=== PATIENT | female | born 1950 | race Caucasian/White ===

== ENCOUNTER 2019-04-15 10:19 | Inpatient (IN) | payer MEDICARE, MEDICAID ==
[~2019-04-15] VITALS: Ht 154.9 cm; Wt 73.9 kg
[2019-04-15 15:18] LABS: BASOPHILS % 0.3 % (0.0-2.0); EOSINOPHILS % 1.2 % (0.0-5.0); HEMATOCRIT. 34.1 % (36.0-48.0); HEMOGLOBIN. 11.4 g/dL (12.0-16.0); LYMPHOCYTES % 14.8 % (20.0-50.0); MEAN CORPUSCULAR HEMOGLOBIN 29.5 pg (28.0-32.0); MEAN CORPUSCULAR VOLUME 88.3 fL (81.0-99.0); MEAN PLATELET VOLUME 8.4 fl (7.4-10.4); MONOCYTES % 3.7 % (2.0-8.0); PLATELET 317 x1000/uL (130-400); RED BLOOD CELL COUNT 3.86 mill/uL (4.2-5.4); RED CELL DISTRIBUTION WIDTH 13.9 % (11.6-14.6)
[2019-04-15 15:19] LABS: CHLORIDE 108 mEq/L (98-107)
[2019-04-15] MEDS ORDERED: FUROSEMIDE 40MG/4ML VIAL IVP NR (18:15)
[2019-04-15] MEDS ORDERED: MAGNESIUM/ALUMINUM HYDROXIDE/SIMETHICONE 30ML UDC PO PRN (18:30)
[2019-04-15] MEDS ORDERED: MORPHINE SULFATE 2 MG/ML CPJ (NOT FOR IM USE) IV PRN (18:30)
[2019-04-15] MEDS ORDERED: TRAMADOL 50MG TABLET PO PRN (18:30)
[2019-04-15] MEDS ORDERED: GUAIFENESIN 200MG/10ML SUGAR FREE UDC PO PRN (18:30)
[2019-04-15] MEDS ORDERED: ONDANSETRON HCL 4MG/2ML INJ IV PRN (18:30)
[2019-04-15] MEDS ORDERED: IPRATROPIUM/ALBUTEROL 0.5-3(2.5)MG/3ML NEB NEB PRN (18:30)
[2019-04-15] MEDS ORDERED: DOCUSATE SODIUM 100MG CAPSULE PO PRN (18:30)
[2019-04-15] MEDS ORDERED: ACETAMINOPHEN 325MG TABLET PO PRN (18:30)
[2019-04-15] MEDS ORDERED: ZOLPIDEM TARTRATE 5MG TABLET PO PRN (18:30)
[2019-04-15] MEDS ORDERED: CLONIDINE 0.1MG TABLET PO PRN (18:30)
[2019-04-15] MEDS ORDERED: NITROGLYCERIN 0.4MG TABLET SL SL PRN (18:30)
[2019-04-15 18:44] LABS: T4 FREE 1.04 ng/dL (0.76-1.46)
[2019-04-15 18:57] LABS: FOLIC ACID (FOLATE) SERUM >20 ng/mL ng/mL (>5.38)
[2019-04-15 19:08] LABS: VITAMIN B12 SERUM 336 pg/mL (211-911)
[2019-04-15 21:17] VITALS: BP 97/56
[2019-04-15] MEDS: ENOXAPARIN 40MG/0.4ML SYR SUBCUT SCH ×2 (22:14→22:30)
[2019-04-16] VITALS: BP 107/48
[2019-04-16 00:03] LABS: CREATINE KINASE MB FRACTION 1.8 ng/mL (0.5-3.6)
[2019-04-16] MEDS ORDERED: ENAL10TA PO (00:15)
[2019-04-16] MEDS ORDERED: OMEP20CA5 PO (00:15)
[2019-04-16] MEDS ORDERED: VENL-180 PO (00:15)
[2019-04-16] MEDS ORDERED: CARV6.2548 PO (00:16)
[2019-04-16] MEDS ORDERED: FURO40TA5 PO (00:16)
[2019-04-16 08:00] VITALS: BP 116/58
[2019-04-16] MEDS: ASPIRIN 325MG EC TABLET PO SCH (09:00)
[2019-04-16] MEDS ORDERED: FUROSEMIDE 40MG/4ML VIAL IVP SCH (09:00)
[2019-04-16 09:20] LABS: CHLORIDE 108 mEq/L (98-107)
[2019-04-16 09:33] LABS: CREATINE KINASE 69 IU/L (26-192); PHOSPHORUS 3.7 mg/dL (2.5-4.9)
[2019-04-16 09:39] LABS: CREATINE KINASE MB FRACTION 1.9 ng/mL (0.5-3.6)
[2019-04-16 09:55] LABS: BASOPHILS % 0.4 % (0.0-2.0); EOSINOPHILS % 2.8 % (0.0-5.0); HEMATOCRIT. 34.3 % (36.0-48.0); HEMOGLOBIN. 11.2 g/dL (12.0-16.0); MEAN CORPUSCULAR HEMOGLOBIN 29.3 pg (28.0-32.0); MEAN CORPUSCULAR VOLUME 89.7 fL (81.0-99.0); MEAN PLATELET VOLUME 8.8 fl (7.4-10.4); MONOCYTES % 5.2 % (2.0-8.0); NEUTROPHILS % 63.6 % (40.0-76.0); PLATELET 350 x1000/uL (130-400); RED BLOOD CELL COUNT 3.82 mill/uL (4.2-5.4); RED CELL DISTRIBUTION WIDTH 14.3 % (11.6-14.6)
[2019-04-16] MEDS: FAMOTIDINE 20MG TABLET PO SCH (11:05)
[2019-04-16] MEDS: SPIRONOLACTONE 25MG TABLET PO SCH ×2 (11:07→21:10)
[2019-04-16 12:00] VITALS: BP 115/72
[2019-04-16 16:00] VITALS: BP 109/80
[2019-04-16] MEDS ORDERED: OMEPRAZOLE 20MG CAPSULE EXTENDED RELEASE PO SCH (19:15)
[2019-04-16] MEDS ORDERED: ENALAPRIL MALEATE 10 MG PO SCH (19:15)
[2019-04-16 20:00] VITALS: BP 128/62
[2019-04-16] MEDS ORDERED: VENLAFAXINE HCL 75MG TABLET PO SCH (20:00)
[2019-04-16] MEDS: ENOXAPARIN 40MG/0.4ML SYR SUBCUT SCH (21:00)
[2019-04-16] MEDS: CARVEDILOL 6.25 MG TABLET PO SCH (21:11)
[2019-04-16] MEDS: FUROSEMIDE 40MG TABLET PO SCH (21:11)
[2019-04-16] MEDS: VENLAFAXINE HCL 37.5MG SR CAPSULE 24HR PO SCH (21:12)
[2019-04-16] MEDS: ENALAPRIL 5MG TABLET PO SCH (21:12)
[2019-04-17 00:30] VITALS: BP 106/45
[2019-04-17 04:00] VITALS: BP 100/52
[2019-04-17 08:00] VITALS: BP 104/56
[2019-04-17] MEDS: SPIRONOLACTONE 25MG TABLET PO SCH (08:54)
[2019-04-17] MEDS: FUROSEMIDE 40MG TABLET PO SCH (08:54)
[2019-04-17] MEDS: ASPIRIN 325MG EC TABLET PO SCH (08:56)
[2019-04-17] MEDS: CARVEDILOL 6.25 MG TABLET PO SCH (08:56)
[2019-04-17] MEDS: FAMOTIDINE 20MG TABLET PO SCH (08:57)
[2019-04-17] MEDS: VENLAFAXINE HCL 37.5MG SR CAPSULE 24HR PO SCH (08:57)
[2019-04-17] MEDS: ENALAPRIL 5MG TABLET PO SCH (08:57)
[2019-04-17 10:02] VITALS: BP 104/56
== END 2019-04-17 12:00 | disposition home or self-care (01) | DRG 291 ==
LOC: ER 10:19 → 7WST 18:07 → EDBEDREQ 18:10 → SUPCPDRO 18:18 → ENRESERV 19:17
PROVIDERS: ADMIT Internal Medicine; ATTEND Internal Medicine
DX: I50.43 Acute on chronic combined systolic (congestive) and diastolic (congestive) heart failure (principal); J96.01 Acute respiratory failure with hypoxia; I42.9 Cardiomyopathy, unspecified; E44.1 Mild protein-calorie malnutrition; D63.8 Anemia in other chronic diseases classified elsewhere; Z95.810 Presence of automatic (implantable) cardiac defibrillator; Z68.30 Body mass index [BMI] 30.0-30.9, adult
CPT/HCPCS: 36415; 71045; 80061; 82550; 82553; 82607; 82746; 83036; 83540; 83550; 83735; 83880; 84100; 84439; 84443; 84484; 93005; 93306; 93970; 96374; 99285; J1650; J1940